=== PATIENT | male | born 1985 | race Caucasian/White ===

== ENCOUNTER 2016-07-30 17:57 | Emergency (ER) | payer MEDICAID, OTHER ==
[~2016-07-30] VITALS: Ht 165.1 cm; Wt 83.6 kg
[2016-07-30] MEDS ORDERED: KETOROLAC 30 MG/1 ML IM ONE (18:30)
[2016-07-30] MEDS ORDERED: KETOROLAC 30 MG/1 ML ONE (19:37)
[2016-07-30 19:51] VITALS: BP 123/78
== END 2016-07-30 20:03 | disposition home or self-care (01) ==
LOC: ED 20:02
DX: S16.1XXA Strain of muscle, fascia and tendon at neck level, initial encounter (principal); M25.511 Pain in right shoulder; F17.210 Nicotine dependence, cigarettes, uncomplicated; F12.10 Cannabis abuse, uncomplicated; W20.8XXA Other cause of strike by thrown, projected or falling object, initial encounter; Y93.89 Activity, other specified; Y92.69 Other specified industrial and construction area as the place of occurrence of the external cause; Y99.8 Other external cause status
CPT/HCPCS: 73030; 96372; 99284; J1885

== ENCOUNTER 2016-09-02 15:41 | Emergency (ER) | payer OTHER ==
[~2016-09-02] VITALS: Ht 165.1 cm; Wt 81.3 kg
[2016-09-02] MEDS ORDERED: SODIUM CHLORIDE FLUSH 10ML SYR IVF ONE (16:30)
[2016-09-02] MEDS ORDERED: SODIUM CHLORIDE 0.9% 1,000ML IVBOLUS ONE (16:30)
[2016-09-02 16:52] LABS: BLOOD UREA NITROGEN 10 mg/dL (7-18)
[2016-09-02] MEDS ORDERED: CEPHALEXIN 500 MG CAPSULE PO ONE (19:30)
[2016-09-02 20:10] VITALS: BP 130/78
== END 2016-09-02 20:12 | disposition home or self-care (01) ==
LOC: ED 20:00
DX: S80.12XA Contusion of left lower leg, initial encounter (principal); L03.116 Cellulitis of left lower limb; X58.XXXA Exposure to other specified factors, initial encounter; Y93.89 Activity, other specified; Y99.8 Other external cause status; Y92.89 Other specified places as the place of occurrence of the external cause
CPT/HCPCS: 36415; 80048; 82040; 85025

== ENCOUNTER 2018-07-08 17:02 | Emergency (ER) | payer SELFPAY ==
[~2018-07-08] VITALS: Ht 165.1 cm; Wt 76.7 kg
[2018-07-08 17:17] VITALS: BP 128/84
--- NOTE | 2018-07-08 17:36 | NUR ---
Adriana HOUSER, at bedside to evaluate pt.
[2018-07-08] MEDS ORDERED: LIDOCAINE-MPF 1%, 2ML ONE (17:49)
[2018-07-08] MEDS ORDERED: BUPIVACAINE 0.25% ONE (17:50)
[2018-07-08] MEDS ORDERED: BUPIVACAINE/PF-EPI 0.25% 1:200K SQ ONE (18:00)
[2018-07-08] MEDS ORDERED: LIDOCAINE-MPF 1%, 5ML INFIL ONE (18:00)
== END 2018-07-08 18:08 | disposition home or self-care (01) ==
LOC: ED 18:02
DX: K08.89 Other specified disorders of teeth and supporting structures (principal); Z72.9 Problem related to lifestyle, unspecified; Z75.9 Unspecified problem related to medical facilities and other health care; Z91.14 Patient's other noncompliance with medication regimen
CPT/HCPCS: 99283